=== PATIENT | male | born 1955 | race Two or more races ===

== ENCOUNTER 2022-12-26 09:54 | Emergency (ER) | payer OTHER ==
[~2022-12-26] VITALS: Ht 165.1 cm; Wt 68.0 kg
[2022-12-26] MEDS ORDERED: NORVASC5 MG PO (10:11)
[2022-12-26] MEDS ORDERED: PROPRANOLOL HCL60 MG (10:12)
[2022-12-26] MEDS ORDERED: ADCIRCA20 MG (10:13)
[2022-12-26] MEDS ORDERED: CRESTOR20 MG (10:13)
== END 2022-12-26 13:43 | disposition home or self-care (01) ==
LOC: ER 09:54
DX: S00.93XA Contusion of unspecified part of head, initial encounter (principal); S13.4XXA Sprain of ligaments of cervical spine, initial encounter; W18.39XA Other fall on same level, initial encounter; Y93.K1 Activity, walking an animal; Y92.89 Other specified places as the place of occurrence of the external cause; Y99.9 Unspecified external cause status; Z88.8 Allergy status to other drugs, medicaments and biological substances; I10 Essential (primary) hypertension